=== PATIENT | male | born 1995 | race Caucasian/White ===

== ENCOUNTER 2016-12-23 19:08 | Emergency (ER) | payer OTHER ==
[2016-12-23 19:17] VITALS: BP 163/86; PULSE 89; RESP 16; TEMP 98.2; O2SAT 93
--- NOTE | 2016-12-23 20:32 | EDPHY ---
H & P Time Seen by Provider: 12/23/16 20:20 HPI/ROS: CHIEF COMPLAINT: Possible umbilical hernia HISTORY OF PRESENT ILLNESS: 21 year old male was performing crunches today and felt immediate pain in his umbilical region. He feels a palpable, reducible mass in his umbilicus. No nausea or vomiting. No inguinal or testicular pain. PHYSICAL EXAM (Prior to examination, patient consented to physical exam, hands were washed and my usual and customary physical exam procedures followed) 1) GENERAL: Well-developed, well-nourished, alert and oriented. Appears to be in no acute distress. 2) HEAD: Normocephalic 3) HEENT: sclera anicteric 4) LUNGS: Breathing comfortably. 5) abdomen: Superior aspect of the umbilicus he has a palpable defect measuring approximately 3-4 mm. I am able to palpate a hernia which is easily reduced. He is able to easily reduce himself and I have instructed him on how to do so. Smoking Status: Never smoked Constitutional: Initial Vital Signs Temperature (C) 36.8 C 12/23/16 19:14 Heart Rate 89 12/23/16 19:14 Respiratory Rate 16 12/23/16 19:14 Blood Pressure 163/86 H 12/23/16 19:14 O2 Sat (%) 93 12/23/16 19:14 O2 Delivery Mode Room Air Allergies/Adverse Reactions: amoxicillin Allergy (Verified 12/23/16 19:14) Home Medications: Medication Instructions Recorded NK [No Known Home Meds] 12/23/16 MDM/Departure - MDM ED Course/Re-evaluation: This patient has a small, reducible umbilical hernia. I have instructed on how to reduce it himself and given him red flag signs and symptoms if he is unable to reduce the area. I recommend he follow up with on-call surgery Dr. Sonu Danielle. Offered analgesia which he declines - Depart Disposition: Home, Routine, Self-Care Clinical Impression: Umbilical hernia Qualifiers: Obstruction and gangrene presence: without obstruction or gangrene Qualifier Code: (K42.9) Umbilical hernia without obstruction or gangrene Condition: Good Instructions: Umbilical Hernia (ED) Additional Instructions: If you developed worsening abdominal pain, if you are unable to push the hernia back in, return to the ER immediately. Referrals: Sonu Danielle MD [Medical Doctor] - 2-3 days, call for appt. (Dr. Sonu Danielle is a general surgeon)
== END 2016-12-23 20:51 | disposition home or self-care (01) ==
DX: K42.9 Umbilical hernia without obstruction or gangrene (principal)